=== PATIENT | female | born 2000 | race African-American/Black ===

== ENCOUNTER → 2024-06-08 | Outpatient (REF) | payer OTHER ==
[2024-06-08 18:16] LABS: BASO % 0.4 % (0.0-1.0); EOS # 0.1 10^3/uL (0.0-0.5); EOS % 1.7 % (0.0-3.0); HEMATOCRIT 32.7 % (36.0-47.0); HEMOGLOBIN 10.6 g/dl (12.0-15.5); LYMPH % 25.4 % (24.0-44.0); MEAN CORPUSCULAR HEMOGLOBIN 23.2 pg (27.0-33.0); MEAN CORPUSCULAR HGB CONC 32.4 g/dl (32.0-36.5); MEAN CORPUSCULAR VOLUME 71.7 fl (80.0-96.0); MONO # 0.7 10^3/uL (0.0-0.8); MONO % 9.3 % (2.0-8.0); NEUTROPHILS # 4.9 10^3/uL (1.5-8.5); NEUTROPHILS % 62.9 % (36.0-66.0); PLATELET COUNT, AUTOMATED 346 10^3/uL (150-450); RED BLOOD COUNT 4.56 10^6/uL (4.00-5.40); WHITE BLOOD COUNT 7.8 10^3/uL (4.0-10.0)
[2024-06-08 18:31] LABS: ERYTHROCYTE SEDIMENTATION RATE 44 mm/hr (0-20)
[2024-06-08 18:43] LABS: FERRITIN 2.9 NG/ML (7.3-270.7); THYROID STIMULATING HORMONE 2.737 uIU/ML (0.55-4.78)
[2024-06-08 18:44] LABS: C REACTIVE PROTEIN QUANTITATIV 3.04 MG/DL (<1.0); CHOLESTEROL LEVEL 151 MG/DL (<200); HDL CHOLESTEROL 47.1 MG/DL (>40); IRON (FE) 14 UG/DL (50-170); LDL CHOLESTEROL 88.9 MG/DL (<100); NON-HDL-C 103.9 MG/DL; PERCENT SATURATION 3.6 % (13.2-45.0); TOTAL IRON BINDING CAPACITY 394 UG/DL (250-425); TRIGLYCERIDES LEVEL 75 MG/DL (<150)
[2024-06-08 19:25] LABS: HEMOGLOBIN A1c 5.5 % (4.0-6.0)
== END ==
LOC: M LAB REF 17:32
PROVIDERS: ATTEND Nurse Practitioner Family
DX: D64.9 Anemia, unspecified (principal); E66.9 Obesity, unspecified; R69 Illness, unspecified; Z11.9 Encounter for screening for infectious and parasitic diseases, unspecified

== ENCOUNTER → 2024-06-21 | Outpatient (CLI) | payer OTHER | LOC: M EKG 15:10 | PROVIDERS: ATTEND Nurse Practitioner Family | DX: R55 Syncope and collapse (principal) ==